=== PATIENT | male | born 1990 | race Caucasian/White ===

== ENCOUNTER 2019-10-17 14:23 | Emergency (ER) | payer MEDICAID, SELFPAY ==
--- NOTE | 2019-10-17 14:35 | ED_ITS ---
I attest that this documentation has been prepared under the direction and in the presence of Dequan Escobar DO. Drake, Brett A., Scribe 10/17/19;14:36 HPI - Dental/Oral General Chief complaint: Dental/Oral Stated complaint: Toothache Time Seen by Provider: 10/17/19 14:30 Source: patient and RN notes reviewed Mode of arrival: ambulatory Limitations: no limitations History of Present Illness HPI Narrative: Pt is a 29 y/o male who presents to the ED with c/o lt lower toothache. He notes that he has had pain in his lt lower teeth since sometime last year. Pt states that he has cracks in three separate teeth. He notes that he has been taking Tylenol and ASA for his pain, but denies having any relief from his pain. Pt states that he hasn't taken any pain medications today. He denies any fever, chills, or other symptoms. MD Complaint: tooth pain Onset (ago): unknown (started in 2019) Duration: worsening Context: poor dental care Associated symptoms: other (none) Treatment prior to arrival: none Review of Systems Review of Systems: All systems reviewed & are unremarkable except as noted in HPI and below Constitutional: Constitutional: Denies chills and Denies fever(s) ENT: Reports dental pain (lt lower toothache) PMFSH Past Medical History Medical History Dental caries Surgical History Surgical History No significant past surgical history Social History Social History (Updated 10/17/19 @ 14:40 by Bruce Collins) Smoking status: Smoker, status unknown Exam Narrative: Exam Narrative: APPEARANCE: No acute distress, nontoxic, resting in bed HEENT: Normocephalic, atraumatic, TMs clear bilaterally, nares patent, oral mucosa moist, airway patent, tooth #1819 and 20 are all carious and tender to palpation mild erythema of the gum with no fluctuance, no overlying facial swelling or erythema Neck: Supple, no cervical lymphadenopathy RESPIRATORY: No respiratory distress MUSCULOSKELETAl: Moves all extremities. NEURO: Awake and alert. Following commands, speech normal, no focal deficits SKIN:: Warm, dry. Normal Color PSYCHIATRIC: Normal affect/mood Course Course Emergency Course: Discussed with patient results of workup and diagnosis. Discussed need for follow-up with primary care, proper use of medication, and reasons to return to the emergency department. Patient understands and agrees to current treatment plan Discharge Plan Discharge Clinical Impression: Dental caries, Odontalgia Patient Disposition: Home, Self-Care Condition: Stable Instructions: Antibiotic Form, Toothache (ED) Additional Instructions: Return for increasing pain fever or any other symptoms of concern Prescriptions: New penicillin V potassium 500 mg tablet 500 mg PO TID Qty: 30 RF: 0 ibuprofen [IBU] 600 mg tablet 600 mg PO Q6H PRN (Reason: pain) Qty: 20 RF: 0 Follow-up/Referrals: [facility] [Outside] (Follow-up in 1 to 2 days for further treatment and evaluation) [facility] [Outside] (Follow-up in 1 to 2 days for further treatment and evaluation) PHYSICIAN,DOPE MAINTENANCE WORKER [Non-Staff] - Time of Disposition: 14:39 I personally performed the services described in this documentation. All medical record entries made by the scribe were at my direction and in my presence. I have reviewed the chart and discharge instructions and
[2019-10-17 14:52] VITALS: BP 166/121; PULSE 88; RESP 15; TEMP 35.9; O2SAT 100
[2019-10-17] MEDS: PENICILLIN V POTASSIUM 250 MG TABLET 500 MG PO (14:52)
== END 2019-10-17 15:15 | disposition home or self-care (01) ==
LOC: ANHED 14:41
PROVIDERS: Emergency Provider Emergency Medicine
DX: K02.9 Dental caries, unspecified (principal); K08.89 Other specified disorders of teeth and supporting structures
CPT/HCPCS: 99283; A9270